=== PATIENT | female | born 1955 | race Caucasian/White ===

== ENCOUNTER 2024-07-01 09:04 | Outpatient (RCR) | payer MEDICARE, SELFPAY | END 2024-07-01 23:59 | disposition home or self-care (01) | LOC: RPT 09:04 | PROVIDERS: FAMILY PHYSICIAN Internal Medicine Geriatric Medicine | DX: T85.44XD Capsular contracture of breast implant, subsequent encounter (principal); Z73.6 Limitation of activities due to disability; M62.81 Muscle weakness (generalized); Z90.13 Acquired absence of bilateral breasts and nipples; Z85.3 Personal history of malignant neoplasm of breast | CPT/HCPCS: 97110; 97140; 97163 ==

== ENCOUNTER 2024-07-29 09:00 | Outpatient (RCR) | payer MEDICARE, SELFPAY | END 2024-07-29 23:59 | disposition home or self-care (01) | LOC: RPT 09:00 | PROVIDERS: FAMILY PHYSICIAN Internal Medicine Geriatric Medicine | DX: T85.44XD Capsular contracture of breast implant, subsequent encounter (principal); Z73.6 Limitation of activities due to disability; M62.81 Muscle weakness (generalized); Z90.13 Acquired absence of bilateral breasts and nipples; Z85.3 Personal history of malignant neoplasm of breast | CPT/HCPCS: 97110; 97112; 97140; 97530 ==

== ENCOUNTER 2024-08-27 09:31 | Outpatient (RCR) | payer MEDICARE, SELFPAY | END 2024-08-27 23:59 | disposition home or self-care (01) | LOC: RPT 09:31 | PROVIDERS: ATTENDING PHYSICIAN Surgery Plastic and Reconstructive Surgery; FAMILY PHYSICIAN Internal Medicine Geriatric Medicine | DX: T85.44XD Capsular contracture of breast implant, subsequent encounter (principal); Z73.6 Limitation of activities due to disability; M62.81 Muscle weakness (generalized); Z90.13 Acquired absence of bilateral breasts and nipples; Z85.3 Personal history of malignant neoplasm of breast | CPT/HCPCS: 97110; 97112; 97140 ==

== ENCOUNTER 2024-10-02 10:06 | Outpatient (RCR) | payer MEDICARE, SELFPAY | END 2024-10-02 23:59 | disposition home or self-care (01) | LOC: RPT 10:06 | PROVIDERS: ATTENDING PHYSICIAN Surgery Plastic and Reconstructive Surgery; FAMILY PHYSICIAN Internal Medicine Geriatric Medicine | DX: T85.44XD Capsular contracture of breast implant, subsequent encounter (principal); Z73.6 Limitation of activities due to disability; M62.81 Muscle weakness (generalized); Z90.13 Acquired absence of bilateral breasts and nipples; Z85.3 Personal history of malignant neoplasm of breast | CPT/HCPCS: 97110; 97112; 97140; 97530 ==